=== PATIENT | female | born 1980 | race African-American/Black ===

== ENCOUNTER → 2017-12-04 13:44 | Outpatient (CLI) | payer BC, SELFPAY ==
[2017-12-09 13:57] LABS: HPV Reflexed? NOT INDICATED
== END ==
PROVIDERS: Visit Provider Obstetrics & Gynecology
DX: Z12.4 Encounter for screening for malignant neoplasm of cervix (principal)
CPT/HCPCS: 88175; G0145

== ENCOUNTER 2019-05-02 22:26 | Observation (INO) | payer OTHER, SELFPAY ==
[2019-05-02 22:27] VITALS: BP 148/78; PULSE 94; RESP 18; TEMP 36.8; O2SAT 100; BMI 23.2
--- NOTE | 2019-05-02 22:39 | ED.RN ---
pt has raspy voice, last had benadryl at 2150.
[2019-05-02] MEDS: MethylPREDNISolone 125 MG/2 ML Vial IV (23:13)
[2019-05-02] MEDS: Famotidine 200 MG/20 ML MDV 20 MG in 0.9% Normal Saline (Pres. free 8 ML 300 MG IV (23:13)
[2019-05-02 23:19] LABS: Absolute Lymphocyte Count 1.02 X10^3/uL (0.83-4.51); Absolute Neutrophil Count 8.1 X10^3/uL (2.0-7.7); Basophil# 0.01 X10^3/uL; Basophil% 0.1 % (0-1); Eosinophil# 0.01 X10^3/uL; Eosinophils% 0.1 % (0-5); Hematocrit 37.3 % (37-47); Hemoglobin 11.9 g/dL (12.0-15.0); Lymphocyte # 1.02 X10^3/ul (4.0); Lymphocyte % 11.1 % (19-41); Mean Corp Hgb Conc 31.9 g/dL (32-36); Mean Corpuscular Volume 81.4 fL (81-99); Mean Platelet Vol. 10.2 fl (6.2-12.0); Monocyte# 0.08 X10^3/uL; Monocyte% 0.9 % (0-10); NRBC Flagged by Analyzer 0 % (0-5); Neutrophil # 8.08 X10^3/uL (2.7-7.7); Neutrophil % 87.5 % (47-70); Platelet Count 320 K/mm3 (150-450); RBC Distribution Width CV 12.9 % (11.6-14.6); Red Blood Count 4.58 M/mm3 (4.2-5.4); White Blood Count 9.2 K/mm3 (4.4-11.0)
[2019-05-02 23:25] LABS: Anion Gap 6 (5-15); BUN 11 mg/dL (7-18); BUN/Creat Ratio 14.5 RATIO (10-20); Calcium,Total 9.1 mg/dL (8.5-10.1); Chloride 110 mmol/L (98-107); Creatinine, Serum 0.76 mg/dL (0.55-1.02); EST Glomerular Filtration Rate 91 mL/min (>60); Est Glom Filt Rate - Afr Amer 110 mL/min (>60); Estimated Creatinine Clearance 79.38 ml/min; Glucose 142 mg/dL (74-106); Sodium Level 138 mmol/L (136-145)
[2019-05-02 23:26] VITALS: PULSE 87; RESP 17; O2SAT 99
--- NOTE | 2019-05-02 23:47 | ED.VISSUMM ---
- ER Visit Summary Date of Service: 05/02/19 Chief Complaint: Allergic reaction History of Present Illness: The patient is a 38 F presenting due to allergic reaction. Patient states she has had intermittent symptoms since Thursday. She has been taking Benadryl and using cortisone cream at home. She states she has hives uses this medication it improves and then returns. She has no known cause except she used a new detergent 3 weeks ago and she is unsure if this was related. She went to [place] ER today was given prednisone. She states she took a nap and when she woke up she had tongue swelling and more facial swelling. She denies difficulty breathing or swallowing. Physical Examination: Vitals are stable. Patient is afebrile. Alert no acute distress. HEENT exam is unremarkable. Mild tongue swelling. No pharyngeal edema Neck is supple. Lungs are clear and equal bilaterally. Heart is regular rate and rhythm. Abdomen is soft nontender nondistended. Extremities are unremarkable. Skin is warm and dry. maculopapular rash with urticaria No focal neurologic deficit. Remainder of exam is unremarkable. Emergency Department Course and Treatment: Patient was given Solu-Medrol, Pepcid IV. She took Benadryl just prior to arrival. CBC, chemistries unremarkable. On reevaluation patient is feeling somewhat improved but still feels tongue swelling and throat tightness and is uncomfortable going home. Discussed with the hospitalist for observation. Disposition: Observation Impression: Allergic reaction This note was generated with [employer] dictation software. It may contain incorrect words, spelling, and punctuation that were not noted in review of the chart prior to signing ED Disposition - Plan for ED Patient: Referrals: Darian Valladares MD [Primary Care Provider] -
[2019-05-03 00:30] VITALS: PULSE 86; RESP 17; O2SAT 100
--- NOTE | 2019-05-03 01:08 | PCM.HP.STD ---
Problem List (1) Allergic reaction Status: Acute History of Present Illness Date of Admission: 05/03/19 Chief Complaint: facial swelling The patient is a 38 year old F previously healthy who presented to emergency department with a feeling of facial swelling. She reported a few weeks ago she had rash on her forehead which went away with Benadryl. About 3 days before presentation she noticed a diffuse itchy rash on her entire body. She began to use cortisone cream; anti-itch cream and Benadryl. Patient works as a visiting nurse; after her work she felt like her face was swollen so she went to [place] [facility] and she was given prednisone. Also she took Benadryl and ibuprofen. However because of increased swelling of her face; swelling of her tongue and difficulty speaking she came to [place] [facility]. Patient thinks that the trigger to her symptoms might be a new detergent, Gain, that she began using about a month ago. Last time she used it was about 3 days ago. Past Medical History Medical History: Medical History (Last Reviewed 05/03/19 @ 04:[address] Tj Calderón MD) No previous medical history Allergies sulfamethoxazole [From Bactrim] Allergy (Verified 05/02/19 22:29) Hives trimethoprim [From Bactrim] Allergy (Verified 05/02/19 22:29) Hives Home Medications: Ambulatory Orders Medication Instructions Recorded NK 05/02/19 Surgical History: - - Edwards teeth removal Lives: With Family Smoking Status: Never smoker - *Family History Maternal History Items: Hypertension Paternal History Items: Hypertension Review of Systems Constitutional: Denies: Chills, Fever, Weight Change HEENT: Denies: Head Aches, Sinus Congestion, Sinus Drainage Cardiovascular: Denies: Chest Pain, Palpitations Respiratory: Denies: Cough, Shortness of breath at rest, Sputum production Gastrointestinal: Denies: Abdominal Pain, Nausea, Vomiting Genitourinary: Denies: Dysuria Musculoskeletal: Denies: Joint Pain, Joint Tenderness Skin: Reports: Pruritis, Rash. Denies: Wounds Neurological: Denies: Numbness, Tingling, Focal weakness Psychiatric: Denies: Anxiety, Depression, Homicidal Ideations, Suicidal Ideations Hematologic/ Lymphatic: Denies: Easy Bruising, Easy Bleeding VTE Information - Inpt Only VTE Present on Admission: No VTE Mechan Device Prophylaxis: None VTE Pharm Prophylaxis ordered?: No Reason prophylaxis not ordered:: Treatment Not Indicated - Low risk, encourage to ambulate. Patient Problems: Active and Suspected Problems (Last Updated 05/03/19 @ 02:[address] Tj Calderón MD) Allergic reaction (Acute) - Physical Exam Vitals/I&O's: Vital Signs Temp Pulse Resp BP Pulse Ox 98.2 F 86 17 148/78 H 100 05/02/19 22:27 05/03/19 00:30 05/03/19 00:30 05/02/19 22:27 05/03/19 00:30 Oxygen Delivery Method Room Air Weight: 57.606 kg Body Mass Index (BMI) 23.2 Intake and Output for Last 24 Hours 05/01/19 05/02/19 05/03/19 23:59 23:59 23:59 Intake Total Balance General: Alert, Oriented x3, Cooperative HEENT: Atraumatic, PERRLA, EOMI, Normocephalic Neck: Supple, No JVD, Negative Carotid Bruits Lungs: Clear to auscultation, Normal air movement Cardiovascular: Regular rate, Regular Rhythm, Normal S1, Normal S2, No murmurs Abdomen: Bowel Sounds Present, Soft, Non Tender Extremities: No edema, Capillary Refill Less than 3 Seconds Skin: No breakdown, Rash Present - Diffuse urticaria rash Musculoskeletal: No Tenderness to Palpation of Joints or Extremities Neurological: Cranial nerves II-XII grossly intact Psych/Mental Status: Normal Affect, Appropriate Laboratory Results 05/02/19 22:35: WBC 9.2, RBC 4.58, Hgb 11.9 L, Hct 37.3, MCV 81.4, MCH 26.0 L, MCHC 31.9 L, RDW Std Deviation 38.0, RDW Coeff of [place] 12.9, Plt Count 320, MPV 10.2, Immature Gran % (Auto) 0.300, Neut % (Auto) 87.5 H, Lymph % (Auto) 11.1 L, [place] % (Auto) 0.9, Eos % (Auto) 0.1, Baso % (Auto) 0.1, Absolute Neuts (auto) 8.1 H, Absolute Lymphs (auto) 1.02, Nucleated RBC % 0 05/02/19 22:35: Sodium 138, Potassium 4.0, Chloride 110 H, Carbon Dioxide 22.0, Anion Gap 6, BUN 11, Creatinine 0.76, Estim Creat Clear Calc 79.38, Est GFR (MDRD) Af Amer 110, Est GFR (MDRD) Non-Af 91, BUN/Creatinine Ratio 14.5, Glucose 142 H, Calcium 9.1 Assessment/Plan All Active Problems (Last Updated 05/03/19 @ 02:[address] Tj Calderón MD) Allergic reaction (Acute) The patient is a 38 year old F previously healthy who presented to emergency department with a feeling of facial swelling; itchy rash and wheals consistent with allergic reaction. Allergic reaction Patient was taking Benadryl at home. Will continue Benadryl as needed. Received prednisone at outside hospital ED and Solu-Medrol at a hospital. We will continue patient on Solu-Medrol. Will give patient a one-time dose of loratadine. Epinephrine as needed for angioedema. DVT Prophylaxis Low risk Encourage to ambulate. Code Visit OBSV E&M: 63643 Initial observation care L2
[2019-05-03 01:09] VITALS: BP 109/71; PULSE 90; RESP 25; TEMP 37; O2SAT 99
[2019-05-03 01:54] VITALS: BMI 24.1; BMI 24.2
[2019-05-03 02:00] VITALS: BP 118/67; PULSE 86; RESP 14; TEMP 36.3; O2SAT 100
[2019-05-03] MEDS: Loratadine 10 MG Tablet PO (02:21)
[2019-05-03] MEDS: DiphenhydrAMINE 50 MG/ML Syringe 25 MG IV ×2 (03:10→09:17)
[2019-05-03 07:00] VITALS: PULSE 85
[2019-05-03 08:05] VITALS: BP 114/61; PULSE 73; RESP 14; TEMP 37.1; O2SAT 99
[2019-05-03] MEDS: 0.9% Saline Lock 10 ML Syringe IV ×2 (09:17→12:54)
[2019-05-03] MEDS: Famotidine 20 MG Tablet 40 MG PO (09:18)
--- NOTE | 2019-05-03 09:29 | PCM.DC ---
- Discharge Diagnoses Current Active Problems: Current Active and Chronic Problems (Last Reviewed 05/03/19 @ 04:[address] Tj Calderón MD) Allergic reaction (Acute) Reason(s) for Visit for Discharge Instructions: Allergic reaction- You will use the following diet at home:: Regular Your food should be the consistency of: Regular Your liquids should be the consistency of: Regular/Thin Discharge Activity: Return to Normal Activity Instructions: Allergy Medications: [id number], Allergy Medications Additional Instructions: Continue to monitor your surroundings for suspected allergens. Follow-up with an waist presser if needed to determine the cause of your allergies. Allergies/Adverse Reactions: Allergies sulfamethoxazole [From Bactrim] Allergy (Verified 05/02/19 22:29) Hives trimethoprim [From Bactrim] Allergy (Verified 05/02/19 22:29) Hives Medications to take at Discharge Famotidine [Pepcid] 40 mg PO DAILY 14 Days #14 tab 05/03/19 Loratadine 10 mg PO DAILY 14 Days #14 tab 05/03/19 Prednisone 40 mg PO DAILY 5 Days #10 tab 05/03/19 The following prescriptions were given: Loratadine 10 mg PO DAILY 14 Days #14 tab Transmission Status: Pending to [id number] Famotidine [Pepcid] 40 mg PO DAILY 14 Days #14 tab Transmission Status: Pending to [id number] Prednisone 40 mg PO DAILY 5 Days #10 tab Transmission Status: Pending to [id number] Primary Care Physician: Darian Valladares MD [Primary Care Provider] - Please follow up with your Primary Care Physician in: within 1-2 weeks Test Results: Test results from this visit will be discussed in further detail at your follow-up appointment, if applicable. Proposed Discharge Date: 05/03/19
--- NOTE | 2019-05-03 09:31 | PCM.DC.SUM ---
Discharge Date and Diagnosis Date of Admission: 05/03/19 Date of Discharge: 05/03/19 - Primary Discharge Diagnosis Active and Suspected Problems (Last Reviewed 05/03/19 @ 04:[address] Tj Calderón MD) Allergic reaction (Acute) Hospital Course and Treatment None Operations: None Procedures: None Summary of Care Provided: The patient is a 38 year old F significant past medical history who presented with a feeling of facial swelling. Patient noticed a rash on her forehead a couple of weeks ago that went away with Benadryl. 3 days prior to presentation, she noticed a diffuse itchy rash all over her body. This appeared to have improved with cortisone cream, anti-itch cream and Benadryl. The day of admission, patient felt that her face was swollen, went to the [facility] ED and was given prednisone, Benadryl and ibuprofen. However she felt that her face was swelling as well as her tongue and had difficulty speaking and she decided to come to the [place] ED. Patient does not know what is triggering her acute allergic reaction. She is suspecting it might be a new detergent Gain. She was admitted for observation on the [facility] floor. She did not require oxygen. There were no respiratory distress noted. She was managed on famotidine, Solu-Medrol and Benadryl. Patient was discharged home on loratadine, famotidine and short course of prednisone 10 mg daily for 5 days. She was advised to follow-up with her primary care doctor and possibly an community health educator. She was prescribed an EpiPen at discharge. Subjective: On the day of discharge, patient was seen and examined. Denied any new complaints. She felt much improved. Objective: Physical exam: - Physical Exam Vitals/I&O's: Vital Signs Temp Pulse Resp BP Pulse Ox 98.8 F 73 14 114/61 99 05/03/19 08:05 05/03/19 08:05 05/03/19 08:05 05/03/19 08:05 05/03/19 08:05 Oxygen Delivery Method Room Air Weight: 59.9 kg Body Mass Index (BMI) 24.1 Intake and Output for Last 24 Hours 05/01/19 05/02/19 05/03/19 23:59 23:59 23:59 Intake Total 300 / 300 Balance 300 / 300 General: Alert, Oriented x3, Cooperative, No apparent distress HEENT: Atraumatic, PERRLA, EOMI, Normocephalic Oral: Moist Mucosa Neck: Supple Lungs: Clear to auscultation, Normal air movement Cardiovascular: Regular rate, Regular Rhythm, Normal S1, Normal S2, No murmurs Abdomen: Bowel Sounds Present, Soft, Non Tender, Non-Distended, No Hepato-splenomegaly Extremities: No edema Skin: - - Few erythematous wheals were seen on ankles, knees, left elbow Musculoskeletal: No Tenderness to Palpation of Joints or Extremities Lymphatic: No Cervical, Supraclavicular, or Inguinal Adenopathy Neurological: Cranial nerves II-XII grossly intact, Neuro grossly intact Psych/Mental Status: Normal Affect, Appropriate Laboratory Results 05/02/19 22:35: WBC 9.2, RBC 4.58, Hgb 11.9 L, Hct 37.3, MCV 81.4, MCH 26.0 L, MCHC 31.9 L, RDW Std Deviation 38.0, RDW Coeff of Luis Antonio 12.9, Plt Count 320, MPV 10.2, Immature Gran % (Auto) 0.300, Neut % (Auto) 87.5 H, Lymph % (Auto) 11.1 L, [place] % (Auto) 0.9, Eos % (Auto) 0.1, Baso % (Auto) 0.1, Absolute Neuts (auto) 8.1 H, Absolute Lymphs (auto) 1.02, Nucleated RBC % 0 05/02/19 22:35: Sodium 138, Potassium 4.0, Chloride 110 H, Carbon Dioxide 22.0, Anion Gap 6, BUN 11, Creatinine 0.76, Estim Creat Clear Calc 79.38, Est GFR (MDRD) Af Amer 110, Est GFR (MDRD) Non-Af 91, BUN/Creatinine Ratio 14.5, Glucose 142 H, Calcium 9.1 Current Medications Diphenhydramine HCl (Benadryl) 25 mg IV Q6H PRN PRN PRN Reason: allergic reaction/itching Last Admin: 05/03/19 09:17 Dose: 25 mg Documented by: Epinephrine HCl (Symjepi) 0.3 mg IM PRN PRN PRN Reason: Angioedema Famotidine (Pepcid) 40 mg PO DAILY YOANA Last Admin: 05/03/19 09:18 Dose: 40 mg Documented by: Glucagon () 1 mg IM .X1 PRN PRN Reason: Hypoglycemia Sodium Chloride () 250 mls @ 15 mls/hr IV .[id number] PRN PRN Reason: Saline Flush Sodium Chloride () 250 mls @ 15 mls/hr IV .[id number] PRN PRN Reason: Additional IVPB Infusion Dextrose (Dextrose 10%-Water) 250 mls @ 999 mls/hr IV .Q16M PRN; Protocol PRN Reason: HYPOGLYCEMIA Methylprednisolone (Solu-Medrol) 40 mg IV Q8 YOANA Last Admin: 05/03/19 06:08 Dose: 40 mg Documented by: Sodium Chloride () 10 - 40 ml IV UD PRN PRN Reason: SALINE FLUSH Last Admin: 05/03/19 09:17 Dose: 10 ml Documented by: Discharge Diet: No Restrictions Discharge Activity: Return to Normal Activity Home Medications: Medications to take at Discharge Epinephrine [Epipen] 0.3 mg IM PRN PRN #1 auto.injct 05/03/19 Famotidine [Pepcid] 40 mg PO DAILY 14 Days #14 tab 05/03/19 Loratadine 10 mg PO DAILY 14 Days #14 tab 05/03/19 Prednisone 40 mg PO DAILY 5 Days #10 tab 05/03/19 Following Prescrptions Were Given to Patient: Epinephrine [Epipen] 0.3 mg IM PRN PRN #1 auto.injct PRN Reason: Anaphylaxis Transmission Status: Received by [facility]/pharmacy #[id number] Loratadine 10 mg PO DAILY 14 Days #14 tab Transmission Status: Received by [facility] [employer]/pharm[facility] #[id number] Famotidine [Pepcid] 40 mg PO DAILY 14 Days #14 tab Transmission Status: Received by [facility] [facility]/pharmacy #[id number] Prednisone 40 mg PO DAILY 5 Days #10 tab Transmission Status: Received by [facility] [employer] [facility]/pharmacy #[id number] Primary Care Physician: Darian Valladares MD [Primary Care Provider] - Please follow up with your Primary Care Physician in: within 1-2 weeks Patient Instructions: Allergy Medications: [id number], Allergy Medications Disposition: Home Minutes spent on discharge:: 35 Patient Condition:: Stable Medical Necessity - Tobacco Use Smoking Status: Never smoker Tobacco Use: Non-smoker Meaningful Use Info Meaningful Use Diagnoses (Choose all that apply): None applicable Code Visit OBSV E&M: 65618 Observation care discharge
--- NOTE | 2019-05-03 11:00 | PHA.DC.COU ---
Addendum entered and electronically signed by Maia Galarza 05/03/19 11:06: Notified Dr. Adorno at this time about the patient inquiring about having an EpiPen for PRN use at home. This technical publications writer told patient that she would notify the physician of the conversation. Original Note: Pharmacy Services has performed discharge medication counseling for this patient. The patient was counseled on the following discharge medications and changes in medications for homegoing review. The Reason for Use, instructions for use, and potential side effects were reviewed for all new medications. 1. Famotidine [Pepcid] 40 mg PO DAILY 14 Days #14 tab 05/03/19 2. Loratadine 10 mg PO DAILY 14 Days #14 tab 05/03/19 3. Prednisone 40 mg PO DAILY 5 Days #10 tab 05/03/19 The patient's questions regarding all of their medications were answered. The patient was able to verbally demonstrate an understanding of their discharge medications.
== END 2019-05-03 09:22 | disposition home or self-care (01) ==
LOC: ED 23:07 → PCU 05-03 01:44
PROVIDERS: Admitting Provider Hospitalist; Emergency Provider Emergency Medicine; PCP Family Medicine; Visit Provider Internal Medicine
DX: R22.0 Localized swelling, mass and lump, head (principal); L50.9 Urticaria, unspecified; T78.40XA Allergy, unspecified, initial encounter
CPT/HCPCS: 80048; 85025; 96374; 96375; 96376; 99218; 99284; A4216; G0378; J3490